=== PATIENT | female | born 1970 | race Hispanic/Latino ===

== ENCOUNTER 2020-01-26 07:43 | Day surgery (SDC) | payer MEDICAID ==
[~2020-01-26 07:43] MED LIST: BACTERIOSTATIC SODIUM CHLORIDE 0.9% 30 ML VIAL INFILTRATI ONE
[2020-01-26] MEDS ORDERED: LACTATED RINGERS 1,000 ML IV SCH (08:00)
[2020-01-26] MEDS ORDERED: FAMOTIDINE 20 MG/2 ML INJ IV NR (09:18)
[2020-01-26] MEDS ORDERED: MIDAZOLAM 2 MG/2 ML INJ IV NR (09:18)
[2020-01-26] MEDS ORDERED: BUPIVACAINE/PF (0.5%) 5 MG/1 ML 30 ML VIAL INFILTRATI ONE ×2 (09:19→10:21)
[2020-01-26] MEDS ORDERED: DIBUCAINE 1% OINT 28 GM ONE (09:19)
--- NOTE | 2020-01-26 09:26 | Anesthesia Consultation ---
Anesthesia Consult and Med Hx Date of service: 01/26/20 - Airway Anesthetic Teeth Evaluation: Edentulous ROM Head & Neck: Adequate Mental/Hyoid Distance: Adequate Mallampati Class: Class II Intubation Access Assessment: Probably Good - Pre-Operative Health Status ASA Pre-Surgery Classification: ASA3 Proposed Anesthetic Plan: General - Pulmonary Hx Smoking: Yes (SINCE AGE 15; 1PPD) Hx Asthma: Yes COPD: Yes (NEBS PRN) Hx Sleep Apnea: (SLEEP STUDY NEG) - Cardiovascular System Hx Heart Murmur: Yes - Central Nervous System Hx Seizures: Yes (FOCAL ON KEPPRA) Hx Back Pain: Yes (back surgery with hardware) Hx Psychiatric Problems: Yes (depression/anxiety, sleep disorder) - Gastrointestinal Hx Gastroesophageal Reflux Disease: Yes - Other Systems Hx Alcohol Use: Yes (RARE) Hx Substance Use: Yes (MARIJUANA OFTEN) Hx Cancer: No Hx Obesity: Yes (BMI 33.5)
--- NOTE | 2020-01-26 09:26 | Anesthesia Day of Surgery ---
Anesthesia Day of Surgery - Day of Surgery Patient Examined: Yes Patient H&P Reviewed: Yes Patient is NPO: Yes
[2020-01-26] MEDS ORDERED: HYDROmorphone 1 MG/1 ML INJ ONE ×2 (09:52→11:26)
[2020-01-26] MEDS ORDERED: propofoL 200 MG/20 ML VIAL IV ONE (09:52)
[2020-01-26] MEDS ORDERED: DIBUCAINE 1% OINT 28 GM PR ONE (10:21)
[2020-01-26] MEDS ORDERED: SODIUM CHLORIDE 0.9% IRR 1,500 ML BOTTLE IR ONE (10:22)
[2020-01-26] MEDS ORDERED: ONDANSETRON 4 MG/2 ML INJ ONE (10:58)
[2020-01-26] MEDS ORDERED: GLYCOPYRROLATE 0.4 MG/2 ML INJ ONE (10:58)
[2020-01-26] MEDS ORDERED: ROCURONIUM 50 MG/5 ML INJ IV ONE (10:58)
[2020-01-26] MEDS ORDERED: NEOSTIGMINE 10MG/10 ML INJ MDV ONE (10:58)
[2020-01-26] MEDS ORDERED: KETOROLAC 30 MG/1 ML INJ ONE (10:58)
[2020-01-26] MEDS ORDERED: LIDOCAINE MPF (2%) 20 MG/1 ML VIAL 5 ML ONE (10:58)
--- NOTE | 2020-01-26 11:13 | Short Stay Summary ---
Short Stay Documentation Date of service: 01/26/20 - History Principal diagnosis: hemorrhoids H&P: obtained from office - Allergies and Medications Current Medications: Allergies Penicillins Allergy (Verified 01/26/20 07:02) Rash amitriptyline [From Elavil] Adverse Reaction (Verified 01/26/20 07:02) GI Upset cyclobenzaprine [From Flexeril] Adverse Reaction (Verified 01/26/20 07:02) GI Upset erythromycin base Adverse Reaction (Verified 01/26/20 07:02) GI Upset Home Medications Medication Instructions Recorded Confirmed Last Taken Type ALBUTEROL NEB's [Proventil 0.083% 2.5 mg IH TID PRN 01/22/20 01/22/20 01/25/20 History NEBS] Acyclovir 400 mg PO QDAY 01/22/20 01/26/20 5 Days Ago History ~01/21/20 AtorvaSTATin [Lipitor] 20 mg PO QAM 01/22/20 01/22/20 01/25/20 History Fenofibrate 160 mg PO QHS 01/22/20 01/22/20 01/25/20 History Levalbuterol Tartrate [Xopenex Hfa] 15 gm IH TID 01/22/20 01/26/20 2 Days Ago History ~01/24/20 Melatonin [Melatonin 10MG SUBL] 10 mg SL QHS 01/22/20 01/22/20 01/25/20 History Ranitidine HCl [Heartburn Relief] 75 mg PO BID 01/22/20 01/26/20 1 Week Ago History ~01/19/20 Zolpidem [Ambien] 10 mg PO QHS 01/22/20 01/22/20 01/25/20 History diphenhydrAMINE [Benadryl CAP] 25 mg PO QHS 01/22/20 01/22/20 01/25/20 History lamoTRIgine [LaMICtal] 150 mg PO BID 01/22/20 01/22/20 01/26/20 06:45 History levETIRAcetam [Keppra TAB] 750 mg PO BID 01/22/20 01/22/20 01/26/20 06:45 History traMADoL [Ultram] 50 mg PO TID 01/22/20 01/22/20 01/25/20 History Active Medications Famotidine (Pepcid) 20 mg IV PREOP NR Stop: 01/26/20 13:00 Last Admin: 01/26/20 09:33 Dose: 20 mg Documented by: Lactated Ringer's (Lactated Ringers) 1,000 mls @ 100 mls/hr IV DIRECT JUAN FRANCISCO Last Admin: 01/26/20 09:30 Dose: 100 mls/hr Documented by: Midazolam HCl (Versed) 2 mg IV ONCE NR Stop: 01/26/20 22:00 Last Admin: 01/26/20 09:30 Dose: 2 mg Documented by: - Brief post op/procedure progress note Date of procedure: 01/26/20 Pre-op diagnosis: internal hemorrhoids Post-op diagnosis: same Procedure: hemorrhoidectomy Anesthesia: GETA, local Findings: 1. Left lateral internal hemorrhoid 2. R anterior internal hemorrhoid 3. External skin tag Surgeon: ERIKA NATH Estimated blood loss: minimal Pathology: list (1. Left lateral internal hemorrhoid, 2. R anterior internal hemorrhoid, 3. external skin tag) Specimen disposition: to lab Condition: stable - Hospital course Hospital course: Pt observed in PACU and discharged to home in stable condition - Disposition Condition at discharge: Good Disposition: DC-01 TO HOME OR SELFCARE Short Stay Discharge Plan Activity: other (avoid heavy lifting) Diet: low fat Wound: open to air, per your surgeon's advice Additional Instructions: SEE PRINTED DISCHARGE INSTRUCTIONS Follow up with: TERESA AMADORHOOPER MD NATHANAEL [Primary Care Provider] - 7 Days ERIKA NATH DO [Staff Physician] - 14 Days Prescriptions: Docusate Sodium [Colace] 100 mg PO BID #10 capsule polyethylene glycoL 3350 [Miralax 3350] 17 gm PO QDAY #5 packet HYDROcodone/APAP 5-325 [[place] 5/325] 1 each PO Q4HR PRN #20 tablet PRN Reason: Pain
[2020-01-26] MEDS ORDERED: ONDANSETRON 4 MG/2 ML INJ IV PRN (11:26)
[2020-01-26] MEDS ORDERED: fentaNYL 100 MCG/2 ML INJ IV PRN (11:26)
[2020-01-26] MEDS: HYDROmorphone 1 MG/1 ML INJ IV PRN ×3 (11:27→11:47)
--- NOTE | 2020-01-26 12:43 | Operative Report ---
Operative Report Operative Report: Date of procedure: 01/26/20 Pre-op diagnosis: internal hemorrhoids Post-op diagnosis: same Procedure: hemorrhoidectomy Anesthesia: GETA, local Findings: 1. Left lateral internal hemorrhoid 2. R posterior internal hemorrhoid 3. External skin tag Surgeon: ERIKA NATH Estimated blood loss: minimal Pathology: list (1. Left lateral internal hemorrhoid, 2. R anterior internal hemorrhoid, 3. external skin tag) Specimen disposition: to lab Condition: stable Hospital course: Pt observed in PACU and discharged to home in stable condition HPI and indication: 50-year-old female with past medical history of chronic constipation, hemorrhoids who presented to the surgery clinic for evaluation of hemorrhoids. The patient has undergone 3 hemorrhoidectomies over the last 20 years. She now complains of a painful hemorrhoid which she can palpate at times. She also notices some blood on the toilet paper when she wipes as well as sensitivity. It was recommended that the patient modify her lifestyle which includes increasing her water intake, starting stool softeners, and starting a high-fiber diet. Due to her symptoms, a hemorrhoidectomy was recommended. All risks, benefits, alternatives to surgery were discussed with the patient and questions answered. Consent was obtained. Procedure in detail: The patient was identified in the preoperative area and taken back to the operating room. Anesthesia was induced in the hospital bed and after the patient was intubated and the ET tube secured, she was placed on the operating room table in prone position. All bony prominences were padded appropriately. The patient was secured to the bed and the buttocks were taped apart using silk tape. She was placed in jackknife position and the rectum, anus, perineal areas were prepped and draped in the usual sterile fashion. A timeout was performed. A rectal exam was performed on under anesthesia by inserting a retractor into the anus. The patient had a narrow external anal canal and therefore a smaller retractor was used. The patient had moderate sized grade 2 internal hemorrhoids at the left lateral and right posterior positions. There was also an external skin tag and anal fissure/tear in the midline posterior location. The decision was made to remove the 2 moderate sized hemorrhoids. A 2-0 Vicryl stitch was placed at the apex of the right posterior hemorrhoid. The mucosa was scored with a 10 blade. Using a hand-held harmonic, the hemorrhoid was dissected off of the underlying muscle and hemostasis achieved along the way. Once the apex of the hemorrhoid was encountered the hemorrhoid was transected and passed off the table as a specimen. The wound bed was checked for hemostasis which was carefully ensured. The mucosa was then reapproximated using the 2-0 Vicryl stitch that was placed at the apex in a running fashion. A portion of the incision closest to the anal skin was left open for drainage. An interrupted chromic suture was placed to slightly approximate this opening. I then turned my attention to the left lateral hemorrhoid. This was excised in the similar fashion as the above. I then turned my attention to the external skin tag at the right anterior position. Using a 10 blade, the skin was incised and the skin tag was then removed via the hand-held harmonic. Hemostasis was ensured. The skin was approximated using a 3-0 chromic interrupted suture. The rectum was then irrigated copiously with saline until the irrigant returned clear. Hemostasis was ensured. The rectum was packed with a Surgifoam roll coated in lidocaine jelly. A perianal nerve block was performed using a 50-50 mixture of 1% lidocaine and 0.5% Marcaine. A ABD pad was placed over the rectum and secured with tape. Mesh underwear was also placed. At the end of the case, all sponge, instrument, sharp counts were correct x2. The patient was transferred to the stretcher in supine position and awoken from anesthesia, extubated, taken to PACU in stable condition.
--- NOTE | 2020-01-26 12:59 | Post Anesthesia Evaluation ---
- Post Anesthesia Evaluation Patient Participated: Yes Airway Patent: Yes Stable Respiratory Function: Yes Nausea/Vomiting: No Temp > 96.8F: Yes Pain Manageable: Yes Adequeate Hydration: Yes Anesthesia Complications: No
[2020-01-26 13:08] VITALS: BP 140/80
== END 2020-01-26 12:29 | disposition home or self-care (01) ==
LOC: OR 07:43
PROVIDERS: ATTEND Surgery
DX: K64.8 Other hemorrhoids (principal); E78.00 Pure hypercholesterolemia, unspecified; J44.9 Chronic obstructive pulmonary disease, unspecified; G47.30 Sleep apnea, unspecified; K21.9 Gastro-esophageal reflux disease without esophagitis; E66.9 Obesity, unspecified; M19.90 Unspecified osteoarthritis, unspecified site; F31.9 Bipolar disorder, unspecified; F41.9 Anxiety disorder, unspecified; F17.210 Nicotine dependence, cigarettes, uncomplicated; Z88.0 Allergy status to penicillin; Z79.899 Other long term (current) drug therapy; Z90.49 Acquired absence of other specified parts of digestive tract; Z98.51 Tubal ligation status; Z90.710 Acquired absence of both cervix and uterus; Z72.89 Other problems related to lifestyle; Z98.890 Other specified postprocedural states
CPT/HCPCS: 46260; 88304; J1170; J1885; J2250; J2405; J2704; J2710; J7120